=== PATIENT | female | born 1960 | race Caucasian/White ===

== ENCOUNTER 2025-08-28 12:55 | Outpatient (AMB) | payer MEDICARE, MEDICAID, SELFPAY ==
--- NOTE | 2025-08-28 12:56 | MHC.OFFVIS ---
Vital Signs 08/28/25 13:00 Height 5 ft 5 in Weight 212 lb 8 oz BMI 35.4 BP 165/80 H Blood Pressure Location Lt brachial Position Sitting Pulse 90 Pulse Source Pulse Oximeter Pulse Oximetry (%) 98 Oxygen Delivery Method Room Air Intake Visit Reasons: MULTIPLE JOINT PAIN Intake Note: Pain today 10/10 Manager Instrumentation Required: No Accompanied by: Other Relationship Allergies No Known Allergies Allergy (Verified 08/28/25 13:04) HPI Comments Details: The patient is a 64-year-old female presenting with chronic pain management. She has had fibromyalgia for 20 years and polyarthritis for approximately 3 years. The fibromyalgia pain is generalized, primarily affecting her upper and lower extremities with severity in her knee joints, hands, shoulders, and feet, while the polyarthritis predominantly affects her hands and feet in a symmetric pattern. The pain in her toes is the most severe and debilitative. She reports the pain as throbbing, stinging, aching, and heavy, constantly rated at 10/10, which severely impacts her sleep and activities of daily living. The pain becomes exacerbated by weather changes and movement, significantly impacting her functional capabilities and placing her on permanent disability. She sometimes uses a walker and her sons assist her with personal care and dressing. Past pain management strategies include Tylenol, Excedrin, and gabapentin, which have proven ineffective. Previously, oxycodone and Vicodin provided the most relief, but those are not currently part of her treatment regimen. She is taking clonazepam 1 mg and gabapentin 300 mg three times daily for the past year without significant pain relief. Additionally, she has not tried physical therapy, healthcare specialist, acupuncture, or TENS unit. In addition to her pain issues, her medical history includes diabetes mellitus with an A1c of 5.1% as of June, chronic kidney disease stage, and a left frontal brain lesion for which an MRI is scheduled. She has a history of depression, anxiety and bipolar disorder managed by a Psychiatrist and reports agoraphobia. She denies smoking and alcohol but consumes three cups of coffee daily. She experienced two episodes of respiratory failure about a year ago and has lost 30 pounds in the past five months without improvement in fibromyalgia symptoms. Pain Description - Onset: Fibromyalgia for 20 years and arthritis for approximately 3 years. - Location: Generalized with primary localization in upper and lower extremities, notably the knees, hands, shoulders, and feet. - Radiation: Severe pain localized in toes. - Quality: Constant, throbbing, stinging, aching, heavy, punishing, and burning sensation. - Severity: Constantly rated at 10/10. - Exacerbating factors: Weather changes, movement, and daily activities increase pain. - Activities affected: Impact on sleep, daily activities, and personal care, requiring disability support. - Previous relieving factors: Oxycodone and Vicodin provided the most relief. Pain Management - Affect: Pain is described as punishing and is associated with comorbid depression. - Analgesia: Current pain level remains at 10/10, despite gabapentin 300 mg TID for over a year. - Adverse Effects: No new adverse effects noted from current medications. - Activities of Daily Living: Pain severely impacts sleep, personal care, and requires assistance; patient on permanent disability. - Aberrant Drug Related Behaviors: None reported. [facility] Medical History Vitamin D deficiency Hyperglycerolemia Hyperparathyroidism IBS (irritable bowel syndrome) Hypothyroidism Insomnia Hairy cell leukemia Flat feet, bilateral Iron deficiency Fibromyalgia Family history of breast cancer Hypertension Depression Chronic kidney disease, stage 3a Bipolar disorder Agoraphobia Social History Patient Tobacco Use Status: Former Tobacco user Review of Systems Narrative - Musculoskeletal: Reports chronic generalized body pain; most severe in toes. - Neurological: Reports burning pain, numbness, tingling in feet from mid-foot up; reports hand tremor. - Psychiatric: Reports depression, agoraphobia, and difficulty sleeping. - Constitutional: Denies significant headaches, fever, chills, cough, malaise, dizziness, nausea, chest pain or dyspnea. Const All systems reviewed & are unremarkable except as noted in HPI and below Physical Exam Vital Signs: Last Vital Signs Pulse 90 08/28/25 13:00 BP 165/80 H 08/28/25 13:00 Pulse Ox 98 08/28/25 13:00 Oxygen Delivery Method Room Air 08/28/25 13:00 BMI result Body Mass Index 35.4 General: Appears afebrile. Alert and oriented. Mood and affect appropriate. Follows and participates in conversation appropriately. Respiratory effort is unlabored. No cough. Able to transition from sit to stand unassisted. Ambulates with bilaterally normal heel strike and toe off Extrem Other: Hand crap shooter strength is equal bilaterally. A situational and postural bilateral hand tremor is present. 5/5 Strength in the feet is good bilaterally against resistance. No swelling, open wounds, or redness observed on feet. No breaks in the skin. No soft tissue swelling or warmth. +2 pedal pulses bilaterally.?No enlarged joints noted. A callus is present on the right great toe and a smaller one on the left great toe. Pain is elicited in the toes upon transitioning from sitting to standing. General: Yes normal to inspection, Yes full ROM, Yes capillary refill normal, Yes no clubbing, cyanosis or edema, Yes no calf tenderness and No muscle atrophy Psych Appearance: grossly normal Mental Status: mental status grossly normal Speech and movement: Normal speech and movement present Affect: normal affect and Other affect and mood findings present (flat affect) Attitude: cooperative Thought process: Circumstantial thought process present Thought content: Normal thought content present, suicidality (none), no hallucinations and Depressive thoughts present Insight: Fair insight present (Psych) Judgement: Fair judgement present (Psych) Assessment & Plan Assessment & Plan (1) Polyarthralgia: Code(s): M25.50 - Pain in unspecified joint Category: Medical (2) Bilateral foot pain: Code(s): M79.671 - Pain in right foot; M79.672 - Pain in left foot Category: Medical (3) Bilateral hand pain: Code(s): M79.641 - Pain in right hand; M79.642 - Pain in left hand Category: Medical (4) Arthritis: Code(s): M19.90 - Unspecified osteoarthritis, unspecified site Category: Medical (5) Polyarthralgia: Code(s): M25.50 - Pain in unspecified joint Category: Medical (6) Bilateral foot pain: Code(s): M79.671 - Pain in right foot; M79.672 - Pain in left foot Category: Medical Plan For the management of fibromyalgia and chronic pain, we will initiate duloxetine at a starting dose of 20 mg at bedtime for 4 weeks, with considerations to increase to twice daily if tolerated. Gabapentin will continue as adjunctive therapy. A referral to Rheumatology and Podiatry will be placed for specialized evaluation of her polyarthritis affecting hands and feet. Hand X-rays will be ordered, and a medical release form will be signed to obtain past joint X-rays from [facility]. A thorough discussion will be encouraged regarding potential future treatments such as knee injections or ablation for symptom alleviation for a longer term pain relief. The patient is encouraged to continue her weight loss efforts and engage in gentle exercise and daily physical activities limited by her physical condition. All questions and concerns have been answered and patient agreed with the treatment plan. Follow up for medication review and sooner as needed. Patient was informed and verbally consented to the use of an ambient scribe for clinic note documentation during this visit. Orders: Orders XR Hand Garrick 2V Today M19.90 - Unspecified osteoarthritis, unspecified site, M79.641 - Pain in right hand, M79.642 - Pain in left hand Referrals Rheumatology Referral M19.90 - Unspecified osteoarthritis, unspecified site, M25.50 - Pain in unspecified joint, M79.641 - Pain in right hand, M79.642 - Pain in left hand, M79.671 - Pain in right foot, M79.672 - Pain in left foot Podiatry Referral M25.50 - Pain in unspecified joint, M79.671 - Pain in right foot, M79.672 - Pain in left foot Medications: New duloxetine 20 mg PO BEDTIME 30 caps 0RF pain 30 days M25.50 - Pain in unspecified joint, M79.641 - Pain in right hand, M79.642 - Pain in left hand, M79.671 - Pain in right foot, M79.672 - Pain in left foot Coding Level of Care Code New Pt Level 4 (49316) Diagnoses Polyarthralgia M25.50 Bilateral foot pain M79.671; M79.672 Bilateral hand pain M79.641; M79.642 Arthritis M19.90
[2025-08-28 13:00] VITALS: BP 165/80; PULSE 90; O2SAT 98; BMI 35.4
--- OUTSIDE RECORDS SUMMARY | 2025-08-28 16:50 | XMS_ITS | Data Portability ---
Author Organization [place] [facility] Address [address] [place] [id number] Care Team Providers Care Covered Button Maker Name Role Phone NUNEZMITRA FARRELL Primary Care Provider Assessment Encounter Date Assessment Date Assessment LastModified by Organization Details LastModified Time 06/29/2019 06/29/2019 Overview/History : 58 yo female new to and this provider who presents with complain of UTI symptoms X10d; Patient was treated with cipro a week ago but symptoms did not resolve; Patient reports burning with urination, urinary urgency and frequency. Denies fever, chills, abdominal/back/f lank pain, blood in the urine, nausea, or vomiting, vaginal discharge Comorbidities: COPD, Depression, fibromyalgia, leukemia Exam: middle age female, well appearing, no acute distress, non-toxic appearance; alert and oriented X3; ambulates independently without difficulty Heart sounds are regular rate and rhythm; no audible murmurs, rubs, or gallops No signs of respiratory distress. Lungs are clear to auscultation in all fileds abdomen is soft, non tender, non distended. Bowel sounds are normoactive and present in all quadrants; No CVA or suprapubic tenderness DDx considered, but not limited to: UTI - recently diagnosed and treated with abx; symptoms did not resolve Pyonephritis - unlikely; no fever, no CVA tenderness, non toxic STI/candidiasis - denied vaginal discharge Work up/Results: Urine dipstick - Leukocytes +2; Blood +1; Nitrates +1 urine culture - pending Plan/Discussion: - reviewed data on [facility]; urine culture from 06/22/19 was contaminated; patient's symptoms did not improve with abx treatment, urine dipstick positive for leukocytes, nitrates, blood. Will start Keflex urine culture pending. First dose of keflex given on scene - pyridium for pain; first dose given on scene - advised to increase fluids intake - follow up with PCP as needed within 3-5 days or sooner if symptoms worsen or do not improve - advised when to seek immediate medical attention/911/ED - patient expressed understanding and agreed to tx plan In order to obtain further information and compare any laboratory results/values, I have accessed patient records on the [employer] [facility] [employer]. This information was pertinent in my medical decision making today. Time On Scene with Patient: 00:20:13 maggie Not available 06/29/2019 18:25:37 Plan of Treatment Reminders Order Date Submit Date Provider Last Modified By Organization Details Last Modified Time Details Appointments None recorded. Lab urinalysis , dipstick 2018 [facility], [address] [place], [address], 17:03:28 culture, urine - Collected by [facility] 2018 [facility] (Centralized Electronic Ordering - All Locations), Patient Can Go To The Location Of Their Choice, [id number] 21:22:04 Referral None recorded. Procedures None recorded. Surgeries None recorded. Imaging None recorded. Medication Orders cephalexin 500 mg capsule 2018 [id number], [address] [place], [address], 9 16:33:59 Keflex 500 mg capsule 2018 [id number], [address] [place], [address], 9 16:34:02 Pyridium 200 mg tablet 2018 [id number], [address] [place], [address], 9 16:34:01 Azo Urinary Pain Relief 95 mg tablet 2018 [id number], [address] [place], [address], 9 16:33:58 Patient TargetsNo targets recorded. Patient Instructions Encounter Date Encounter Id Patient Instructions Last Modified By Organization Details Last Modified Time 06/29/2019 [id number] URINARY TRACT INFECTION INSTRUCTIONS BASIC INFORMATION Urinary tract infections(UTI) can involve any portion of the urinary tract. The most common presentation is a bladder infection/cystitis, which usually presents with urinary frequency, burning with urination, urgency, foul smelling cloudy urine and occasionally blood. Kidney infections are less frequent, but more serious, and present with fever, flank pain, malaise and sometimes shaking chills. UTI s are common in women because of the female anatomy, and much less common in males. INSTRUCTIONS Drink plenty of fluid, water is best. Drinking fluids will help to flush the bacteria from your body. Urinate every 2-3 hours Wear cotton underwear and avoid Nylon, Spandex and Lycra which tend to trap moisture and thong underwear which may facilitate UTI s . Avoid tub baths Avoid using Super Tampons Use only mild unscented soap to wash your genitals, such as Dove or Ivory, avoid heavily scented body washes. If you are sexually active urinate as soon as possible after intercourse. Yogurt and probiotics may help to establish a more healthy genital environment, and aid in prevention. MEDICATIONS 1.Antibiotics: Usually prescribed if you have a UTI, there are many different effective antibiotics available. It is important that you complete the course of antibiotics you are given. You should feel some improvement within 24-48 hours, if you do not it may be that the bacteria causing your infection is resistant to the prescribed medication. If a urine culture is obtained it will usually take at least 3-4 days to get the final result. 2. Anesthetic/Pain relievers: Phenazopyridine (Pyridium, Uribelle, AZO) is an anesthetic excreted in the urine. This medicine will turn your urine BRIGHT ORANGE! This is normal, and may stain your underwear can contacts. Take this medication as directed with food. 3. Tylenol and Ibuprofen can be helpful for the pain, fever and body aches that can be associated with a kidney infection. Please follow recommended dosing instructions on the bottle. FOLLOW UP 1. If your symptoms are not improving in 24-48 hours 2. If your symptoms are getting more severe 3. Any unusual vaginal discharge 4. Symptoms recur after you complete medication SEEK CARE IMMEDIATELY IF 1.You have shaking chills or temperature over 101.5 2. Severe flank pain 3. Persistent vomiting, unable to keep fluids or medicine down. 4. Worse despite medication. If you develop any new or worsening symptoms and need after hours care, please go to nearest ER and/or call 911. If you have additional concerns or develop a change in your condition between 8am-10pm, please call [facility] at [phone] to help navigate your care. maggie Not available 06/29/2019 17:10:19 Reason for Referral None Reported. Results Created Date Observation Date Name Description Value Unit Range Abnormal Flag Note LastModifiedBy Organization Detail LastModifiedTime 06/29/2006/29/2019 urina lysis , dipst ick Appearance clear Not Available [facility] [address] [place], [address], 06/29/2019 16:23:45 06/29/2006/29/2019 urina lysis , dipst ick Color yellow Not Available Spr - Home [address] [place], [address], 06/29/2019 16:23:45 06/29/2006/29/2019 urina lysis , dipst ick Glucose negati ve Not Available Spr - Home [address] [place], [address], 06/29/2019 16:23:45 06/29/20 19 06/29/2019 urina lysis , dipst ick Bilirubin negati ve Not Available [facility] - [facility] [address] [place], [address], 06/29/2019 16:23:45 06/29/2006/29/2019 urina lysis , dipst ick Ketones NEG Not Available [facility] - Home [address] [place], [address], 06/29/2019 16:23:45 06/29/2006/29/2019 urina lysis , dipst ick Sp. [place] 1.020 Not Available Spr - Home [address] [place], [address], 06/29/2019 16:23:45 06/29/2006/29/2019 urina lysis , dipst ick Blood + Not Available Spr - Home [address] [place], [address], 06/29/2019 16:23:45 06/29/2006/29/2019 urina lysis , dipst ick pH 5.0 Not Available [facility] - Home [address] [place], [address], 06/29/2019 16:23:45 06/29/2006/29/2019 urina lysis , dipst ick Protein negati ve Not Available [facility] - Home [address] [place], [address], 06/29/2019 16:23:45 06/29/2006/29/2019 urina lysis , dipst ick Urobilirubin negati ve Not Available Spr - Home [address] [place], [address], 06/29/2019 16:23:45 06/29/2006/29/2019 urina lysis , dipst ick Nitrites + Not Available Spr - [facility] [address] [place], [address], 06/29/2019 16:23:45 06/29/2006/29/2019 urina lysis , dipst ick Leukocytes ++ Not Available [facility] [address] [place], [address], 06/29/2019 16:23:45 06/29/2006/30/2019 cultu re, urine specimen description URINE Not Available [facility] ([facility] - All Locations) Patient Can Go To The Location Of Their Choice, [id number] 07/01/2019 07:57:56 06/29/2006/30/2019 cultu re, urine special requests NONE Not Available [facility] ([facility] Order[facility] - All Locations) Patient Can Go To The Location Of Their Choice, [id number] 07/01/2019 07:57:56 06/29/2007/01/2019 cultu re, urine culture NO GROWTH Not Available [facility] (Centralized Electronic Ordering - All Locations) Patient Can Go To The Location Of Their Choice, [id number] 07/01/2019 07:57:56 06/29/2007/01/2019 cultu re, urine report status FINAL 2018 Not Available [facility] (Centralized Electronic Ordering - All Locations) Patient Can Go To The Location Of Their Choice, [id number] 07/01/2019 07:57:56 Result Notes None recorded. Medical Equipment None Reported. Allergies No known drug allergies Medications Name Sig Start Date Stop Date Status Note LastModified by Organization Details LastModified Time levothyroxine 137 mcg tablet active Not Available Not Availab le Not Available paroxetine 10 mg tablet active Not Available Not Available No t Available benztropine 0.5 mg tablet active Not Available Not Available No t Available trazodone 50 mg tablet active Not Available Not Available Not Available Keflex 500 mg capsule Take 1 capsule 3 times a day by oral route for 5 days. 2018 active Not Available Not Available Not Avai lable clonazepam 1 mg tablet active Not Available Not Available Not Available Pyridium 200 mg tablet Take 1 tablet 3 times a day by oral route for 3 days. 2018 active Not Available Not Available Not Avai lable lithium carbonate ER 300 mg tablet,extended release active Not Available Not Available Not Available lithium carbonate 150 mg capsule active Not Available Not Available N ot Available ciprofloxacin 250 mg tablet active Not Available Not Availabl e Not Available chlorpromazine 25 mg tablet active Not Available Not Available Not Available levothyroxine 125 mcg tablet active Not Available Not Availab le Not Available clonazepam 2 mg tablet active Not Available Not Available Not Available benztropine 1 mg tablet active Not Available Not Available No t Available gabapentin 300 mg capsule active Not Available Not Available N ot Available pravastatin 20 mg tablet active Not Available Not Available No t Available lisinopril 5 mg tablet active Not Available Not Available Not Available furosemide 20 mg tablet active Not Available Not Available No t Available polyethylene glycol 3350 17 gram/dose oral powder active Not Available Not Available Not Available Azo Urinary Pain Relief 95 mg tablet Take 2 tablets by oral route. 2018 active Not Available Not Available Not Avai lable Vitals Date Recorded Heart rate Body temperature Respiratory rate Oxygen saturation Systolic And Diastolic Provider Name and Address Organization Details Last Updated DateTime 9 96 /min 98.6 [degF] 18 /min 98 % 102/78 mm[Hg] Not Available [facility] 9 16:27:23 Social History Question Answer Notes LastModified by Organizat ion Details LastModified Time Tobacco Smoking Status Former Smoker ABHISHEK WALKER [address] [facility] [place], [address], [place] [facility] 06/29/2019 16:22:02 How Many Days In The Past Year Have You Had A Heavy Drinking Consumption (4+ Female, 5+ Male)? 0 [email or web address] Information not available 06/29/2019 Marital Status nyuzych Informatio n not available 06/29/2019 Sex: Unknown Functional Status None recorded. Mental Status None recorded. Family History Nothing Reported. Medical History Condition Response Diabetes N Coronary Artery Disease N Cancer N Stroke N COPD Y Depression Y Asthma N High Cholesterol N Pulmonary Embolism N Hypertension N Kidney Disease N Gynecological HistoryNo gynecological history recorded. Obstetrics History GPAL:G 0 P 0 0 0 0 Past Encounters Encounter ID Performer Location Encounter Start Date Encounter Closed Date Diagnosis/Indication Diagnosis SNOMED-CT Code Diagnosis ICD10 Code Diagnosis IMO Codes Diagnosis Note [id number] ABHISHEK WALKER [facility] [address] [place] [address] 06/29/2019 16:19:45 06/30/2019 12:10:07 Urinary tract infectious disease 03293504 N39.0 Dysuria 98431940 R30.9 Health Concerns Section Related Observation LastModified by Organization Detai ls LastModified Time None Recorded Concern Status LastModified by Organization Details LastModified Time None Recorded Advance Directives Directive None Recorded Payers Insurance Date Sequence Insurance Name Policy Number Policy Johnson Covered Member ID Johnson Member ID Guarantor Name 07/08/2019 1 [place] [employer] Nereyda Lauren [id number] Nereyda Lauren 07/08/2019 1 [place] [employer] [employer] Nereyda Onofrejonathan [id number] Nereyda Aguilar 07/08/2019 1 [place] Nereyda Onofrejonathan [id number] Nereyda Aguilar 07/08/2019 1 *SELF PAY* Nereyda Aguilar [id number] Nereyda Aguilar 07/08/2019 2 [place] Nereyda Aguilar [id number] Nereyda Aguilar 07/08/2019 2 [place] Nereyda Aguilar [id number] Nereyda Aguilar 07/08/2019 1 *SELF PAY* Nereyda Aquino [id number] Nereyda Aguilar Notes Date Note Type Note Provider Name and Address Organization Details Recorded Time 06/29/2019 text/html Mrs. Aguilar is a 58 yo female new to and this provider who presents wi complain of UTI symptoms X10d; Patient was treated with cipro a week ago but symptoms did not resolve; Patient reports burning with urination, urinary urgency and frequency. Denies fever, chills, abdominal/back/ flank pain, blood in the urine, nausea, or vomiting.Comorb idities: COPD, Depression, fibromyalgia, leukemia ABHISHEK WALKER [address] [place], [address], [place] [facility] 06/29/2019 18:25:45 OBGyn Episode No OBEpisode recorded.
--- OUTSIDE RECORDS SUMMARY | 2025-08-28 16:50 | XMS_ITS | Clinical Summary ---
Author Organization [facility] Address [address] [place] [address] Phone Care Team Providers Care Beam Dyer Operator Name Role Phone Abdi Ramirez MD Primary Care Provider [phone] Allergies No known active allergies Medications No known medications Active Problems No known active problems Encounters Date Type Department Care Team Description 06/12/2025 3:13 AM EDT - 06/12/2025 7:44 AM EDT Emergency [facility] Emergency [address] [place] [address] Wilian Guardado MD Muhoozi, Bannet, MD Head injury, initial encounter (Primary Dx); Fall, initial encounter; Acute midline low back pain without sciatica; Urinary tract infection without hematuria, site unspecified Discharge Disposition: Home or Self Care from Last 3 Months Medical History Medical History Date Comments Diabetes mellitus ([facility] V24, [facility] V28) CKD (chronic kidney disease) Disease of thyroid gland Leukemia ([facility] V24, [facility] V28) Social History Tobacco Use Types Packs/Day Years Used Date Smoking Tobacco: Never Smokeless Tobacco: Never Tobacco Cessation:Counseling Given: Not Answered Comments Unknown Sex and Gender Information Value Date Recorded Sex Assigned at Female 06/12/2025 4:49 AM EDT Legal Sex Female 8:22 PM EST Gender Identity Female 06/12/2025 4:49 AM EDT Sexual Orientation Straight 06/12/2025 4: 49 AM EDT Last Filed Vital Signs Vital Sign Reading Time Taken Comments Blood Pressure 147/98 06/12/2025 6:27 AM EDT Pulse 87 06/12/2025 6:27 AM EDT Temperature 36.5 C (97.7 F) 06/12/2025 6:27 AM EDT Respiratory Rate 18 06/12/2025 6:27 AM EDT Oxygen Saturation 98% 06/12/2025 6:27 AM EDT Inhaled Oxygen Concentration - - Weight 89.8 kg (198 lb) 06/12/2025 3:11 AM EDT Height 165.1 cm (5' 5 ) 06/12/2025 3:11 AM EDT Body Mass Index 32.95 06/12/2025 3:11 AM EDT Plan of Treatment Health Maintenance Due Date Last Done Comments Breast Cancer Screening 1960 Colorectal Cancer Screening: Colonoscopy 1960 Diabetes: Annual Foot Exam 1970 Diabetes: Annual Retina Eye Exam 1970 Cervical Cancer Screening: Pap Smear 1981 Cholesterol Screening (Lipid Panel) 10/07/2023 HIV Screening 10/07/2023 Hepatitis C Screening 10/07/2023 Medicare Annual Wellness Visit 10/07/2023 Social Influencers of Health Screening 10/07/2023 Depression Screening 09/13/2024 Diabetes: Annual Urine Albumin-Creatinine Ratio (uACR) 06/12/2025 Diabetes: Blood Sugar Control Test (HGBA1C) 06/12/2025 COVID-19 Vaccine (5 - Pfizer risk 2024- season) 2025 06/26/2025, 08/02/2021, 11/16/2020, Additional history exists Diabetes: Annual GFR (Glomerular Filtration Rate) 06/12/2026 06/12/2025 Hypertension/CHF/CAD Annual BMP Blood Test 06/12/2026 06/12/2025 DTaP,Tdap,and Td Vaccines (5 - Td or Tdap) 04/25/2035 04/25/2025, 02/09/2019, 12/27/2008, Additional history exists Zoster Vaccines Completed 11/02/2024, 01/29/2024 RSV Immunization Adult Patients Completed 02/22/2025 Influenza Vaccine Completed 04/25/2025, , 07/14/2022, Additional history exists Pneumococcal Vaccine: 50+ Years Completed 05/08/2025, 05/08/2025, 03/17/2022, Additional history exists HIB Vaccines Aged Out No longer eligi ble based on patient's age to complete this topic HPV Vaccines Aged Out No longer eligi ble based on patient's age to complete this topic Hepatitis A Vaccines Aged Out No long er eligible based on patient's age to complete this topic Hepatitis B Vaccines Aged Out No long er eligible based on patient's age to complete this topic IPV Vaccines Aged Out No longer eligi ble based on patient's age to complete this topic MMR Vaccines Aged Out No longer eligi ble based on patient's age to complete this topic Meningococcal ACWY Vaccine Aged Out N o longer eligible based on patient's age to complete this topic Meningococcal B Vaccine Aged Out No l onger eligible based on patient's age to complete this topic RSV Immunization Patients Under 20 months Aged Out No longer eligible based on patient's age to complete this topic Varicella Vaccines Aged Out No longer eligible based on patient's age to complete this topic Procedures Procedure Name Priority Date/Time Associated Diagnosis Comments GILLIAM URINE CULTURE TUBE Routine 06/12/2025 6:24 AM EDT EXTRA TUBES Routine 06/12/2025 6:24 AM EDT URINALYSIS WITH REFLEX MICROSCOPIC STAT 06/12/2025 6:24 AM EDT URINALYSIS WITH REFLEX MICROSCOPIC STAT 06/12/2025 6:[address] LUMBAR SPINE WO CONTRAST STAT 06/12/2025 4:[address] HEAD WO CONTRAST STAT 06/12/2025 4 :13 AM EDT CBC WITH AUTO DIFFERENTIAL STAT 06/12/2025 3:48 AM EDT CBC AND DIFFERENTIAL STAT 06/12/2025 3:48 AM EDT MAGNESIUM STAT 06/12/2025 3:48 AM EDT COMPREHENSIVE METABOLIC PANEL STAT 06/12/2025 3:48 AM EDT from Last 3 Months Results * (ABNORMAL) Urinalysis with reflex microscopic (06/12/2025 6:24 AM ED) Specific [place] Urine 1.013 1.003 - 1.030 LAB URINALYSIS - AUTOMATED METHOD 06/12/2025 7:21 AM [facility] pH, Urine 6.5 5.0 - 8.0 pH LAB URINALYSIS - AUTOMATED METHOD 06/12/2025 7:21 AM [facility] Leukocytes, Urine Large(A) Negative LAB URINALYSIS - AUTOMATED METHOD 06/12/2025 7:21 AM [facility] Nitrite, Urine Positive(A) Negative LAB URINALYSIS - AUTOMATED METHOD 06/12/2025 7:21 AM [facility] Protein, Urine 30(A) <=Trace mg/dL LAB URINALYSIS - AUTOMATED METHOD 06/12/2025 7:21 AM [facility] Glucose, Urine Negative Negative mg/dL LAB URINALYSIS - AUTOMATED METHOD 06/12/2025 7:21 AM [facility] Ketones, Urine Negative Negative mg/dL LAB URINALYSIS - AUTOMATED METHOD 06/12/2025 7:21 AM [facility] Urobilinogen , Urine 1.0 0.2 - 1.0 mg/dL LAB URINALYSIS - AUTOMATED METHOD 06/12/2025 7:21 AM [facility] Bilirubin, Urine Negative Negative LAB URINALYSIS - AUTOMATED METHOD 06/12/2025 7:21 AM [facility] Blood, Urine Small(A) Negative LAB URINALYSIS - AUTOMATED METHOD 06/12/2025 7:21 AM [facility] RBC, Urine 4.0 0 - 4 /HPF LAB URINALYSIS - AUTOMATED METHOD 06/12/2025 7:21 AM [facility] WBC, Urine 1,928.0(H) 0 - 4 /HPF LAB URINALYSIS - AUTOMATED METHOD 06/12/2025 7:21 AM EDT [facility] Squamous Epithelial, Urine 9 0 - 60 /LPF LAB URINALYSIS - AUTOMATED METHOD 06/12/2025 7:21 AM EDT [facility] Bacteria, Urine Many(A) Negative /HPF LAB URINALYSIS - AUTOMATED METHOD 06/12/2025 7:21 AM EDT [facility] Hyaline Casts, Urine 4.6(H) 0 - 3 /LPF LAB URINALYSIS - AUTOMATED METHOD 06/12/2025 7:21 AM EDT [facility] Urine Urine specimen obtained by clean catch procedure / Unknown Non-blood Collection / Unknown 06/12/2025 6:24 AM EDT 06/12/2025 6:52 AM EDT Wilian Guardado MD LAB URINE ORDERABLES Final R esult Performing Organization Address City/[facility]/ZIP Co de Phone Number [facility] [address] [place] [address], [place] [phone] * Gilliam urine culture tube (06/12/2025 6:24 AM EDT) Extra Tube Hold for add-ons. 06/12/2025 8:02 AM EDT [facility] Comment:Auto resulted. Urine Urine specimen obtained by clean catch procedure / Unknown Non-blood Collection / Unknown 06/12/2025 6:24 AM EDT 06/12/2025 6:52 AM EDT Wilian Guardado MD LAB URINE ORDERABLES Final R esult [facility] [address] [place] [address], [place] [phone] * CT Lumbar Spine wo Contrast (06/12/2025 4:13 AM EDT) Anatomical Region Laterality Modality Spine, L-spine Computed Tomogra phy 06/12/2025 6:41 AM EDT Impressions 06/12/2025 6:41 AM EDT Mild left hydroureteronephrosis of unclear etiology. Correlate clinically and consider further evaluation with abdomen/pelvis CT if warranted. No acute fractures identified in the lumbar spine. [id number] multilevel spondylotic changes, with alignment as discussed above. This document has been electronically signed by: Rikki Martin MD on 06/12/2025 06:41:07 Narrative 06/12/2025 6:41 AM EDT INDICATION: fall low back pain CT lumbar spine without contrast Comparison: None provided Findings: Convex left curvature centered at L2. The lumbar spine otherwise maintains each usual lordosis. Multilevel spondylotic changes, with varying degrees of disc space height loss, endplate osteophytes and facet hypertrophy. No acute fractures identified. There are atherosclerotic calcifications. Mild left hydroureteronephrosis of unclear etiology. The distal ureter and bladder are not included within field of view. Procedure Note Rikki Martin - 06/12/2025 INDICATION: fall low back pain CT lumbar spine without contrast Comparison: None provided Findings: Convex left curvature centered at L2. The lumbar spine otherwisemaintains each usual lordosis. Multilevel spondylotic changes, with varyingdegrees of disc space height loss, endplate osteophytes and facet hypertrophy.No acute fractures identified. There are atherosclerotic calcifications.Mild left hydroureteronephrosis of unclear etiology. The distal ureter and bladder are not included within field of view. IMPRESSION: Mild left hydroureteronephrosis of unclear etiology. Correlateclinically and consider further evaluation with abdomen/pelvis CT if warranted. No acute fractures identified in the lumbar spine. [id number] multilevel spondylotic changes, with alignment as discussed above. This document has been electronically signed by: Rikki Martin MD on 06/12/2025 06:41:07 Wilian Guardado MD IMG CT PROCEDURES Final Resu lt * CT Head wo Contrast (06/12/2025 4:13 AM EDT) Anatomical Region Laterality Modality Head and Neck Computed Tomogra phy 06/12/2025 6:35 AM EDT Addenda Addendum by Rikki Martin on 06/12/2025 6:47 AM EDT ADDENDUM: Receipt of this report by the clinical staff was confirmed with Kaity HOFFMAN on Jun 12, 2025 06:45:00 EDT. This document has been electronically signed by: Vianey Cho on 06/12/2025 06:47:08 Impressions 06/12/2025 6:35 AM EDT 1. No acute intracranial findings. 2. Small, 7 mm left frontal parafalcine lesion. Possibly a dural-based meningioma but other etiologies not excluded. A nonemergent contrast-enhanced brain MRI is recommended for further evaluation. This document has been electronically signed by: Rikki Martin MD on 06/12/2025 06:35:54 Narrative 06/12/2025 6:35 AM EDT INDICATION: fall, headache CT head without contrast Comparison: CT/SR - BRAIN C- CT - 01/22/24 07:57 EDT Findings: There is mild diffuse brain volume loss. I do not see evidence for acute intracranial hemorrhage, midline shift or mass effect. There is a small soft tissue density focus seen along the left parasagittal high frontal region on series 2, image 33/44 that measures 2.6 x 7.3 mm. The visualized paranasal sinuses and mastoid air cells are aerated. No skull fracture seen. Procedure Note Rikki Martin - 06/12/2025 INDICATION: fall, headache CT head without contrast Comparison: CT/SR - BRAIN C- CT - 01/22/24 07:57 EDT Findings: There is mild diffuse brain volume loss. I do not see evidence for acute intracranial hemorrhage, midline shift or mass effect. There is a small soft tissue density focus seen along the left parasagittal high frontal region on series 2, image 33/44 that measures 2.6 x 7.3 mm. Thevisualized paranasal sinuses and mastoid air cells are aerated. No skull fracture seen. IMPRESSION: 1. No acute intracranial findings. 2. Small, 7 mm left frontal parafalcine lesion. Possibly a dural-based meningioma but other etiologies not excluded. A nonemergent contrast-enhanced brain MRI is recommended for further evaluation. This document has been electronically signed by: Rikki Martin MD on 06/12/2025 06:35:54 us Wilian Guardado MD IMG CT PROCEDURES Edited Res ult - Final * (ABNORMAL) CBC auto differential (06/12/2025 3:48 AM EDT) WBC 5.9 4.8 - 10.8 K/mcL LAB HEMETOLOGY METHOD 06/12/2025 4:33 AM [facility] RBC 4.40 3.80 - 4.80 M/mcL LAB HEMETOLOGY METHOD 06/12/2025 4:33 AM [facility] Hemoglobin 14.1 11.5 - 16.0 g/dL LAB HEMETOLOGY METHOD 06/12/2025 4:33 AM [facility] Hematocrit 41.3 35.0 - 47.0 % LAB HEMETOLOGY METHOD 06/12/2025 4:33 AM [facility] MCV 94.7 79.0 - 98.0 FL LAB HEMETOLOGY METHOD 06/12/2025 4:33 AM [facility] MCH 32.3(H) 27.0 - 32.0 pcg LAB HEMETOLOGY METHOD 06/12/2025 4:33 AM [facility] MCHC 34.1 32.0 - 37.0 g/dL LAB HEMETOLOGY METHOD 06/12/2025 4:33 AM [facility] RDW 13.6 11.0 - 15.0 % LAB HEMETOLOGY METHOD 06/12/2025 4:33 AM [facility] Platelets 107(L) 130 - 400 K/mcL LAB HEMETOLOGY METHOD 06/12/2025 4:33 AM [facility] MPV 8.8 7.0 - 11.0 FL LAB HEMETOLOGY METHOD 06/12/2025 4:33 AM [facility] NRBC 0.0 <1.0 % LAB HEMETOLOGY METHOD 06/12/2025 4:33 AM [facility] NRBC Absolute 0.00 <0.10 K/mcL LAB HEMETOLOGY METHOD 06/12/2025 4:33 AM [facility] Neutrophils Relative 72.6 % LAB HEMETOLOGY METHOD 06/12/2025 4:33 AM [facility] Lymphocytes Relative 14.6 % LAB HEMETOLOGY METHOD 06/12/2025 4:33 AM [facility] Monocytes Relative 9.5 % LAB HEMETOLOGY METHOD 06/12/2025 4:33 AM [facility] Eosinophils Relative 1.4 % LAB HEMETOLOGY METHOD 06/12/2025 4:33 AM [facility] Basophils Relative 0.7 % LAB HEMETOLOGY METHOD 06/12/2025 4:33 AM [facility] Immature Granulocytes Relative 1.2 % LAB HEMETOLOGY METHOD 06/12/2025 4:33 AM [facility] Neutrophils Absolute 4.29 1.50 - 7.00 K/mcL LAB HEMETOLOGY METHOD 06/12/2025 4:33 AM [facility] Lymphocytes Absolute 0.86(L) 1.00 - 5.00 K/mcL LAB HEMETOLOGY METHOD 06/12/2025 4:33 AM [facility] Monocytes Absolute 0.56 0.20 - 1.00 K/mcL LAB HEMETOLOGY METHOD 06/12/2025 4:33 AM [facility] Eosinophils Absolute 0.08 0.00 - 0.50 K/mcL LAB HEMETOLOGY METHOD 06/12/2025 4:33 AM [facility] Basophils Absolute 0.04 0.00 - 0.20 K/mcL LAB HEMETOLOGY METHOD 06/12/2025 4:33 AM EDT [facility] Immature Granulocytes Absolute 0.07(H) 0.00 - 0.03 K/mcL LAB HEMETOLOGY METHOD 06/12/2025 4:33 AM EDT [facility] Blood Venous blood specimen / Unknown Venipuncture / Unknown 06/12/2025 3:48 AM EDT 06/12/2025 4:30 AM EDT Wilian Guardado MD LAB BLOOD ORDERABLES Final R esult Performing Organization Address [facility]/ZIP Co de Phone Number [facility] [address] [place] [address], [place] [phone] * (ABNORMAL) Magnesium (06/12/2025 3:48 AM EDT) Magnesium 1.8(L) 1.9 - 2.6 mg/dL LAB CHEMISTRY METHOD 06/12/2025 5:05 AM EDT [facility] Blood Venous blood specimen / Unknown Venipuncture / Unknown 06/12/2025 3:48 AM EDT 06/12/2025 4:30 AM EDT Wilian Guardado MD LAB BLOOD ORDERABLES Final R esult Performing Organization Address [facility]/ZIP Co de Phone Number [facility] [address] [place] [address], [place] [phone] * (ABNORMAL) Comprehensive Metabolic Panel (CMP) (06/12/2025 3:48 AM EDT) Sodium 139 133 - 145 mmol/L LAB CHEMISTRY METHOD 06/12/2025 5:05 AM EDT [facility] Potassium 4.1 3.5 - 5.5 mmol/L LAB CHEMISTRY METHOD 06/12/2025 5:05 AM EDT [facility] Chloride 107 96 - 110 mmol/L LAB [facility]STR[facility] CO2 23 21 - 32 mmol/L LAB CHEMISTRY METHOD 06/12/2025 5:05 AM [facility] Anion Gap 9 3 - 11 LAB CHEMISTRY METHOD 06/12/2025 5:05 AM [facility] Glucose 120(H) 70 - 100 mg/dL LAB CHEMISTRY METHOD 06/12/2025 5:05 AM [facility] BUN 16 5 - 25 mg/dL LAB CHEMISTRY METHOD 06/12/2025 5:05 AM [facility] Creatinine 0.98 0.50 - 1.10 mg/dL LAB CHEMISTRY METHOD 06/12/2025 5:05 AM [facility] eGFR 65 >=60 mL/min/1. 73m2 LAB CHEMISTRY METHOD 06/12/2025 5:05 AM [facility] Comment:Calculation based on the Chronic Kidney Disease Epidemiology Collaboration (CKD-EPI) equation refit without adjustment for race. BUN/Creatinine Ratio 16.3 LAB CHEMISTRY METHOD 06/12/2025 5:05 AM [facility] Calcium 10.4 8.5 - 10.5 mg/dL LAB CHEMISTRY METHOD 06/12/2025 5:05 AM [facility] AST (SGOT) 86(H) 10 - 42 unit/L LAB CHEMISTRY METHOD 06/12/2025 5:05 AM [facility] ALT (SGPT) 141(H) 10 - 60 unit/L LAB CHEMISTRY METHOD 06/12/2025 5:05 AM [facility] Alkaline Phosphatase 150(H) 42 - 121 unit/L LAB CHEMISTRY METHOD 06/12/2025 5:05 AM [facility] Total Protein 6.8 6.0 - 8.0 g/dL LAB CHEMISTRY METHOD 06/12/2025 5:05 AM [facility] Albumin 3.9 3.2 - 5.0 g/dL LAB CHEMISTRY METHOD 06/12/2025 5:05 AM EDT [facility] Total Bilirubin 0.5 0.0 - 1.4 mg/dL LAB CHEMISTRY METHOD 06/12/2025 5:05 AM EDT [facility] Blood Venous blood specimen / Unknown Venipuncture / Unknown 06/12/2025 3:48 AM EDT 06/12/2025 4:30 AM EDT us Wilian Guardado MD LAB BLOOD ORDERABLES Final R esult [facility] [address] [place] [address], from Last 3 Months Insurance MEDICAID - [place] MEDICARE Care Teams Beam Dyer Operator Relationship Specialty Start Date End Date Abdi Ramirez MD [address] [place] [id number] PCP - General Internal Medicine 9/30/25
== END 2025-08-28 13:41 | disposition home or self-care (01) ==
LOC: HO.PMC 12:56
PROVIDERS: PCP Internal Medicine; Visit Provider Nurse Practitioner Family
DX: M25.50 Pain in unspecified joint (principal); M79.671 Pain in right foot; M79.672 Pain in left foot; M79.641 Pain in right hand; M79.642 Pain in left hand; M19.90 Unspecified osteoarthritis, unspecified site
CPT/HCPCS: 99204

== ENCOUNTER → 2025-08-28 12:55 | Outpatient (BNVA) | payer MEDICARE, MEDICAID, SELFPAY | PROVIDERS: PCP Internal Medicine; Visit Provider Nurse Practitioner Family | DX: M25.50 Pain in unspecified joint (principal); M79.671 Pain in right foot; M79.672 Pain in left foot; M79.641 Pain in right hand; M79.642 Pain in left hand; M19.90 Unspecified osteoarthritis, unspecified site; M79.7 Fibromyalgia; G89.29 Other chronic pain | CPT/HCPCS: 99202 ==